=== PATIENT | male | born 1975 | race Caucasian/White ===

== ENCOUNTER 2025-01-19 20:58 | Emergency (ER) | payer SELFPAY ==
[~2025-01-19] VITALS: Ht 185.4 cm; Wt 81.8 kg
[~2025-01-19 20:58] MED LIST: CEPH-558 PO; TRAM50TA5 PO
[2025-01-19 21:26] VITALS: BP 151/72; PULSE 71; RESP 20; TEMP 98; O2SAT 97
[2025-01-20] MEDS: CLINDAMYCIN PHOS 150 MG/ML 4 ML VIAL IM ONE (00:34)
[2025-01-20 01:03] LABS: PLATELET COUNT (AUTO) 231 K/uL (150-450); RED BLOOD CELL COUNT(AUTO) 4.57 MIL/uL (4.50-5.90); RED CELL DISTRIBUTION WIDTH 13.8 % (11.5-14.5); WHITE BLOOD COUNT (AUTO) 6.6 K/uL (4.5-11.0)
[2025-01-20 01:10] LABS: CALCIUM, TOTAL 8.9 mg/dL (8.8-10.5); CREATININE 1.6 mg/dL (0.60-1.30); GLOMERULAR FILTR. RATE CALC 46.0 mL/min (>60); GLUCOSE,RANDOM 109.0 mg/dL (70-110); SODIUM SERUM 138.0 mmol/L (136-145); UREA NITROGEN, BLOOD 24.0 mg/dL (7-18)
[2025-01-20 01:17] LABS: LACTIC ACID 0.6 mmol/L (0.4-2.0)
[2025-01-20] MEDS ORDERED: CLIN-142 PO (01:50)
== END 2025-01-20 02:10 | disposition home or self-care (01) ==
LOC: EMS 20:58
DX: L03.115 Cellulitis of right lower limb (principal)
CPT/HCPCS: 99283; 80048; 83605; 85025; 36415; 96372; J3490